=== PATIENT | male | born 1970 | race Caucasian/White ===

== ENCOUNTER 2024-01-06 23:01 | Emergency (ER) | payer SELFPAY ==
[2024-01-06 23:08] VITALS: TEMP 98.5
[2024-01-06] MEDS ORDERED: LORazepam 1 MG TAB PO PRN ×2 (23:15)
[2024-01-06] MEDS ORDERED: LORazepam 2 MG/ML INJ IV PRN ×3 (23:15)
[2024-01-06] MEDS ORDERED: LORazepam 0.5 MG TAB PO PRN (23:15)
--- NOTE | 2024-01-06 23:15 | ED ---
Alcohol HPI <SandrageovanyrolanVern Chandler - Last Filed: 01/07/24 09:49> - General Source: patient, EMS, RN notes reviewed, old records reviewed Mode of arrival: EMS - History of Present Illness MD Complaint: alcohol intoxication, alcohol withdrawal, alcohol dependence, desires rehab, medical clearance for detox facility Last Drink: unknown -: days(s) Previous Visits for Alcohol Intoxication?: Yes Recent Trauma: Yes Associated Symptoms: denies other symptoms Treatments Prior to Arrival: none Chronic Alcohol Use: Yes <Arnulfo Mack - Last Filed: 01/08/24 00:16> - General Chief Complaint: Alcohol Stated Complaint: ETOH Time Seen by Provider: 01/06/24 23:03 - History of Present Illness Initial Comments: This is a 53-year-old male for altered mental status suspect acute alcohol withdrawal and delirium patient was at [facility] where he ran away and went [place] [employer] [place] where EMS was called secondary to agitated behavior (Arnulfo Mack) - Related Data Allergies Allergy/AdvReac Type Severity Reaction Status Date / Time No Known Allergies Allergy Verified 01/06/24 23:08 Review of Systems ROS Other: All systems not noted in ROS Statement are negative. <SandrageovanyrolanVern Chandler - Last Filed: 01/07/24 09:49> ROS Other: All systems not noted in ROS Statement are negative. <Arnulfo Mack - Last Filed: 01/08/24 00:16> ROS Statement: Those systems with pertinent positive or pertinent negative responses have been documented in the HPI. Past Medical History Past Medical History: No Reported History History of Any Multi-Drug Resistant Organisms: None Reported Past Surgical History: Appendectomy Past Psychological History: No Psychological Hx Reported Smoking Status: Current every day smoker Past Alcohol Use History: Abuse Past Drug Use History: Marijuana <Arnulfo Mack - Last Filed: 01/08/24 00:16> General Exam Limitations: altered mental status, physical limitation General appearance: alert, in no apparent distress, appears intoxicated, anxious Head exam: Present: atraumatic, normocephalic, normal inspection Eye exam: Present: normal appearance, PERRL, EOMI. Absent: scleral icterus, conjunctival injection, periorbital swelling ENT exam: Present: normal exam, mucous membranes moist Neck exam: Present: normal inspection. Absent: tenderness, meningismus, lymphadenopathy Respiratory exam: Present: normal lung sounds bilaterally. Absent: respiratory distress, wheezes, rales, rhonchi, stridor Cardiovascular Exam: Present: regular rate, normal rhythm, normal heart sounds. Absent: systolic murmur, diastolic murmur, rubs, gallop, clicks GI/Abdominal exam: Present: soft, normal bowel sounds. Absent: distended, tenderness, guarding, rebound, rigid Extremities exam: Present: normal inspection, full ROM, normal capillary refill. Absent: tenderness, pedal edema, joint swelling, calf tenderness Back exam: Present: normal inspection Neurological exam: Present: alert, oriented X3, CN II-XII intact Psychiatric exam: Present: normal affect, normal mood Skin exam: Present: warm, dry, intact, normal color. Absent: rash <Arnulfo Mack - Last Filed: 01/08/24 00:16> Course <Arnulfo Mack - Last Filed: 01/08/24 00:16> Vital Signs 01/06/24 01/07/24 01/07/24 23:03 07:32 09:00 Temperature 98.5 F Pulse Rate 102 H 84 86 Respiratory 18 20 20 Rate Blood Pressure 152/113 143/98 148/89 O2 Sat by Pulse 99 98 98 Oximetry 01/07/24 10:31 Temperature 98.5 F Pulse Rate 89 Respiratory 20 Rate Blood Pressure 140/80 O2 Sat by Pulse 98 Oximetry - Reevaluation(s) Reevaluation #1: 01/06/24 23:19 Records reviewed (Arnulfo Mack) Reevaluation #4: Cleared for psychiatric evaluation patient refusing any other treatment here in the ER (Arnulfo Mack) Reevaluation #5: Differential Altered Mental Status: Hypoglycemia, DKA, hypercapnia, ETOH, overdose, CO poisoning, trauma, myxedema coma, HTN encephalopathy, infection, encephalitis, psychosis, intercranial hemorrhage, hepatic encephalopathy, meningitis, CVA, this is not meant to be an all-inclusive list (Arnulfo Mack) Medical Decision Making - Lab Data Result diagrams: 01/06/24 23:31 01/06/24 23:31 <Vern Diehl - Last Filed: 01/07/24 09:49> - Lab Data Result diagrams: 01/06/24 23:31 01/06/24 23:31 - EKG Data -: EKG Interpreted by Me (EKG is sinus 98 OK 166 QRS 102 QTc 401) <Arnulfo Mack Mansoor - Last Filed: 01/08/24 00:16> - Medical Decision Making Was pt. sent in by a medical professional or institution (, JACOB, FRONT OFFICE JAVA DEVELOPER, urgent care, hospital, or [place] [facility] facility...) When possible be specific @ -No Did you speak to anyone other than the patient for history (EMS, parent, family, police, friend...)? What history was obtained from this source @ -No Did you review nursing and triage notes (agree or disagree)? Why? @ -I reviewed and agree with nursing and triage notes Were old charts reviewed (outside hosp., previous admission, EMS record, old EKG, old radiological studies, urgent care reports/EKG's, [place] [facility] facility records)? Report findings @ -No old charts were reviewed Differential Mental Health Depression, anxiety, bipolar, psychosis, schizophrenia, borderline personality, situational depression, adjustment disorder, behavioral disorder, brain tumor, malingering, substance abuse, encephalopathy, medication reaction, dementia, hypothyroidism, degenerative neurologic disorder, lupus.... This is not meant to be all-inclusive list EKG interpreted by me (3pts min.). @ -As above X-rays interpreted by me (1pt min.). @ -None done CT interpreted by me (1pt min.). @ -None done U/S interpreted by me (1pt. min.). @ -None done What testing was considered but not performed or refused? (CT, X-rays, U/S, labs)? Why? @ -None What meds were considered but not given or refused? Why? @ -None Did you discuss the management of the patient with other professionals (professionals i.e. , JACOB, FRONT OFFICE JAVA DEVELOPER, lab, RT, psych nurse, social work faculty member, director of volunteer services, teacher, privacy officer, spring encaser)? Give summary @ -No Was smoking cessation discussed for >3mins.? @ -No Was critical care preformed (if so, how long)? @ -No Were there social determinants of health that impacted care today? How? (Homelessness, low income, unemployed, alcoholism, drug addiction, transportation, low edu. Level, literacy, decrease access to med. care, assisted, rehab)? @ -No Was there de-escalation of care discussed even if they declined (Discuss DNR or withdrawal of care, Hospice)? DNR status @ -No What co-morbidities impacted this encounter? (DM, HTN, Smoking, COPD, CAD, Cancer, CVA, ARF, Chemo, Hep., AIDS, mental health diagnosis, sleep apnea, morbid obesity)? @ -[Alcohol abuse Was patient admitted / discharged? Hospital course, mention meds given and route, prescriptions, significant lab abnormalities, going to OR and other pertinent info. @ -Patient was medically cleared by previous physician awaiting EPS evaluation. Patient was evaluated by EPS and felt to be stable for discharge. I did reevaluate the patient myself. He is resting comfortably. He is alert and oriented. Patient has not received any benzodiazepines in the last 5-1/2 hours. Patient is stable for discharge back to [facility]. Undiagnosed new problem with uncertain prognosis? @ -No Drug Therapy requiring intensive monitoring for toxicity (Heparin, Nitro, Insulin, Cardizem)? @ -No Were any procedures done? @ -No Diagnosis/symptom? @ -[Alcohol withdrawal Acute, or Chronic, or Acute on Chronic? @ -Acute Uncomplicated (without systemic symptoms) or Complicated (systemic symptoms)? @ -Default Side effects of treatment? @ -No Exacerbation, Progression, or Severe Exacerbation? @ -No Poses a threat to life or bodily function? How? (Chest pain, [place], [place], pneumonia, PE, COPD, DKA, ARF, appy, cholecystitis, CVA, Diverticulitis, Homicidal, Suicidal, threat to staff... and all critical care pts) @ -Low risk at this time (Vern Diehl) - Lab Data Lab Results 01/06/24 01/06/24 Range/Units 23:31 23:31 WBC 4.7 (3.8-10.6) k/uL RBC 3.54 L (4.30-5.90) m/uL Hgb 12.2 L (13.0-17.5) gm/dL Hct 35.4 L (39.0-53.0) % MCV 100.0 (80.0-100.0) fL MCH 34.4 (25.0-35.0) pg MCHC 34.4 (31.0-37.0) g/dL RDW 14.0 (11.5-15.5) % Plt Count 121 L (150-450) k/uL MPV 11.5 Neutrophils % 63 % Lymphocytes % 22 % Monocytes % 10 % Eosinophils % 1 % Basophils % 1 % Neutrophils # 2.9 (1.3-7.7) k/uL Lymphocytes # 1.0 (1.0-4.8) k/uL Monocytes # 0.5 (0-1.0) k/uL Eosinophils # 0.1 (0-0.7) k/uL Basophils # 0.0 (0-0.2) k/uL Sodium 134 L (137-145) mmol/L Potassium 4.4 (3.5-5.1) mmol/L Chloride 104 (98-107) mmol/L Carbon Dioxide 24 (22-30) mmol/L Anion Gap 6 mmol/L BUN 11 (9-20) mg/dL Creatinine 0.64 L (0.66-1.25) mg/dL Est GFR (CKD-EPI)AfAm >90 (>60 ml/min/1.73 sqM) Est GFR (CKD-EPI)NonAf >90 (>60 ml/min/1.73 sqM) Glucose 94 (74-99) mg/dL Calcium 9.2 (8.4-10.2) mg/dL Phosphorus 4.3 (2.5-4.5) mg/dL Magnesium 1.9 (1.6-2.3) mg/dL Total Bilirubin 0.9 (0.2-1.3) mg/dL AST 68 H (17-59) U/L ALT 48 (4-49) U/L Alkaline Phosphatase 72 (38-126) U/L Total Protein 7.3 (6.3-8.2) g/dL Albumin 4.5 (3.5-5.0) g/dL Lipase 215 (23-300) U/L Serum Alcohol <10 mg/dL Disposition Is patient prescribed a controlled substance at d/c from ED?: No <Vern Diehl N - Last Filed: 01/07/24 09:49> <Arnulfo Mack - Last Filed: 01/08/24 00:16> Clinical Impression: Depression, Alcohol withdrawal syndrome Disposition: HOME SELF-CARE Condition: Fair Instructions (If sedation given, give patient instructions): Alcohol Withdrawal (ED) Additional Instructions: Please return to [facility] Referrals: Nonstaff,Physician [Primary Care Provider] - 1-2 days
[2024-01-06] MEDS: SODIUM CHLORIDE 0.9% 1,000 ML IV STA (23:22)
[2024-01-06] MEDS: SODIUM CHLORIDE 0.9% 500 ML 500 ML IV STA (23:23)
[2024-01-06] MEDS: LORazepam 2 MG/ML INJ IV STA (23:24)
[2024-01-06 23:53] LABS: ALT 48 U/L (4-49); AST 68 U/L (17-59); African American GFR (CKD) >90 (>60 ml/min/1.73 sqM); Albumin 4.5 g/dL (3.5-5.0); Alcohol <10 mg/dL; Alkaline Phosphatase 72 U/L (38-126); Anion Gap 6 mmol/L; Blood Urea Nitrogen 11 mg/dL (9-20); Calcium 9.2 mg/dL (8.4-10.2); Carbon Dioxide 24 mmol/L (22-30); Chloride 104 mmol/L (98-107); Glucose 94 mg/dL (74-99); Lipase 215 U/L (23-300); Magnesium 1.9 mg/dL (1.6-2.3); Non-African American GFR(CKD) >90 (>60 ml/min/1.73 sqM); Phosphorus 4.3 mg/dL (2.5-4.5); Sodium 134 mmol/L (137-145); Total Bilirubin 0.9 mg/dL (0.2-1.3); Total Protein 7.3 g/dL (6.3-8.2)
[2024-01-07 00:12] LABS: Potassium 4.4 mmol/L (3.5-5.1)
[2024-01-07] MEDS: SODIUM CHLORIDE 0.9% 1,000 ML IV STA (00:37)
[2024-01-07 00:57] LABS: Basophils % (A) 1 %; Eosinophils # (A) 0.1 k/uL (0-0.7); Eosinophils % (A) 1 %; HCT 35.4 % (39.0-53.0); HGB 12.2 gm/dL (13.0-17.5); Lymphocytes % (A) 22 %; MCH 34.4 pg (25.0-35.0); MCHC 34.4 g/dL (31.0-37.0); Mean Platelet Volume 11.5; Monocytes # (A) 0.5 k/uL (0-1.0); Monocytes % (A) 10 %; Neutrophils # (A) 2.9 k/uL (1.3-7.7); Neutrophils % (A) 63 %; Platelet Count 121 k/uL (150-450); RBC 3.54 m/uL (4.30-5.90); WBC 4.7 k/uL (3.8-10.6)
[2024-01-07] MEDS: LORazepam 1 MG TAB PO PRN (04:41)
[2024-01-07 07:33] VITALS: RESP 20
[2024-01-07 10:32] VITALS: BP 140/80; PULSE 89
== END 2024-01-07 10:32 | disposition home or self-care (01) ==
LOC: EC 23:01
DX: F10.239 Alcohol dependence with withdrawal, unspecified (principal); F32.A Depression, unspecified; F17.200 Nicotine dependence, unspecified, uncomplicated
CPT/HCPCS: 82075; 36415; 93005; 80053; 83690; 83735; 84100; 85025; 99285; 96374; 96375; 96361 ×3; G0480; J2060; J3360; 80320